=== PATIENT | female | born 1985 | race Caucasian/White ===

== ENCOUNTER 2017-03-04 19:58 | Emergency (ER) | payer OTHER ==
[~2017-03-04] VITALS: Ht 157.5 cm; Wt 81.6 kg
[~2017-03-04 19:58] MED LIST: ALBUTEROL S5 MG/1 ML; HYDROCODON-ACE1 EAC7 PO; INDOCIN25 MG PO; MOBIC7.5 MG PO; NORCO 5/3251 TABLET PO; SINGULAIR10 MG PO; VALIUM2 MG PO; ZYRTEC10 M3 PO
[2017-03-04 20:04] VITALS: BP 103/72
== END 2017-03-04 21:08 | disposition home or self-care (01) ==
LOC: EME 19:58
DX: S06.0X0A Concussion without loss of consciousness, initial encounter (principal); S09.90XA Unspecified injury of head, initial encounter; W22.09XA Striking against other stationary object, initial encounter; Y93.89 Activity, other specified; Z87.891 Personal history of nicotine dependence; J45.909 Unspecified asthma, uncomplicated; K21.9 Gastro-esophageal reflux disease without esophagitis
CPT/HCPCS: 99281; 99284

== ENCOUNTER 2017-07-10 10:36 | Emergency (ER) | payer OTHER ==
[~2017-07-10] VITALS: Ht 162.6 cm; Wt 80.5 kg
[2017-07-10 11:21] LABS: HEMATOCRIT 42.7 % (36.0-46.0); MCH 28.7 PG (29.0-34.0); MEAN PLAT.VOLUME 10.6 uM^3 (9.5-12.4); PLATELET COUNT 223 K/uL (156-360); RBC DIS.WIDTH-CV 12.1 % (11.8-14.6); RED BLOOD COUNT 4.91 M/uL (3.80-5.20); WHITE BLOOD COUNT 7.2 K/uL (4.1-10.2)
[2017-07-10 11:34] LABS: CHLORIDE 107 mEq/L (99-109); SODIUM 141 mEq/L (136-147)
[2017-07-10 11:36] LABS: GLUCOSE 101 mg/dL (70-99)
[2017-07-10 11:38] LABS: ANION GAP 12 MEQ/L (2-14); TOTAL BILIRUBIN 0.4 mg/dL (0.0-1.0)
[2017-07-10 11:40] LABS: ALKALINE PHOSPHATASE 34 IU/L (3-129); GFR ESTIMATE (CALCULATED) > 59 mL/min/
[2017-07-10 11:41] LABS: UREA NITROGEN (BUN) 18 mg/dL (9-23)
[2017-07-10 11:53] LABS: QUANTITATIVE HCG < 4.0 MIU/ML
[2017-07-10 12:38] LABS: ADD MIUA? NO; BILIRUBIN NEGATIVE; BLOOD NEGATIVE; COLOR YELLOW ((YELLOW)); GLUCOSE (STRIP) NEGATIVE; KETONES NEGATIVE; LEUKOCYTES NEGATIVE; NITRITE NEGATIVE; PROTEIN (STRIP) NEGATIVE; SPECIFIC GRAVITY 1.024 (1.000-1.030); UCUL ADDED? NO; UROBILINOGEN 0.2 MG/DL (0.2-1.0)
[2017-07-10] MEDS ORDERED: COLACE100 MG PO (13:39)
[2017-07-10 14:08] VITALS: BP 97/67
== END 2017-07-10 14:09 | disposition home or self-care (01) ==
LOC: EME 10:36
DX: R10.2 Pelvic and perineal pain (principal); K59.00 Constipation, unspecified; K62.89 Other specified diseases of anus and rectum; Z87.891 Personal history of nicotine dependence; Z90.49 Acquired absence of other specified parts of digestive tract
CPT/HCPCS: 74020; 80053; 81003; 84702; 85027; 99281; 99283